=== PATIENT | female | born 1945 | race Caucasian/White ===

== ENCOUNTER 2021-08-09 13:42 | Emergency (ER) | payer MEDICARE ==
[~2021-08-09] VITALS: Ht 162.6 cm; Wt 71.2 kg
--- OUTSIDE RECORDS SUMMARY | 2021-08-09 13:46 | XMS ---
PreManage Notification: KOLE AGUILLON Security Operations Administrative Assistant Events No recent Security Events currently on file [facility] There are no care providers on record at this time. Bethanie has no Care Guidelines for this patient. Noé VISIT COUNT (12 MO.) 1 ANSHU Rivers TOTAL 1 NOTE: Visits indicate total known visits. ED/C VISIT TRACKING (12 MO.) 08/09/2021 13:43 ANSHU Benoit OR TYPE: Emergency COMPLAINT: - FEVER, BODY ACHES, HEADACHE, SORE THROAT INPATIENT VISIT TRACKING (12 MO.) No inpatient visits to display in this time frame [email or web address]
[2021-08-09] MEDS ORDERED: INDAPAMIDE2.5 MG PO (16:11)
[2021-08-09] MEDS ORDERED: POTASSIUM CHLO10 MEQ PO (16:11)
[2021-08-09] MEDS ORDERED: LEVOTHYROXINE25 MCG PO (16:12)
[2021-08-09] MEDS ORDERED: FUROSEMIDE20 MG PO (16:12)
[2021-08-09] MEDS ORDERED: HYDRALAZINE HCL50 MG PO (16:12)
[2021-08-09] MEDS ORDERED: PANTOPRAZOLE SO40 MG PO (16:13)
[2021-08-09] MEDS ORDERED: SPIRONOLACTONE25 MG PO (16:13)
== END 2021-08-09 17:35 | disposition home or self-care (01) ==
LOC: ED 13:42
DX: B34.9 Viral infection, unspecified (principal); Z20.822 Contact with and (suspected) exposure to COVID-19; I10 Essential (primary) hypertension; Z79.899 Other long term (current) drug therapy
CPT/HCPCS: 87502; 99283; C9803; U0003